=== PATIENT | male | born 1950 | race Caucasian/White ===

== ENCOUNTER 2022-07-15 10:34 | Emergency (ER) | payer OTHER ==
[~2022-07-15] VITALS: Ht 165.1 cm; Wt 76.2 kg
[2022-07-15 11:03] VITALS: BP_SYST 144
--- NOTE | 2022-07-15 11:05 | NUR ---
Patient triaged and placed in waiting room. VSS and patient appears in no acute distress at this time. Accompanied by , awaiting available bed, and MD notified of need for MSE.
--- NOTE | 2022-07-15 14:15 | NUR ---
Patient to ER bed CH1 to gown for evaluation. Side rails up.
--- NOTE | 2022-07-15 14:20 | NUR ---
ER DR. BALL EXAMINING PT
--- NOTE | 2022-07-15 17:05 | NUR ---
Pt bib from home CC left leg pain. Skin intact. aaox3, skin dry. Pt denies neuro deficit, denies sob.
--- NOTE | 2022-07-15 17:05 | NUR ---
ER at bedside examining patient.
[2022-07-15 17:32] VITALS: BP_SYST 139
--- NOTE | 2022-07-15 17:32 | NUR ---
Patient given written and verbal discharge instructions and verbalizes understanding. ER MD discussed with patient the results and treatment provided. Patient in stable condition. ID arm band removed. Rx of given. Patient educated on pain management and to follow up with PMD. Opportunity for questions provided and answered. Medication side effect fact sheet provided.
== END 2022-07-15 17:32 | disposition home or self-care (01) ==
LOC: SED 10:34
DX: I82.402 Acute embolism and thrombosis of unspecified deep veins of left lower extremity (principal); M79.662 Pain in left lower leg; E11.9 Type 2 diabetes mellitus without complications; I10 Essential (primary) hypertension; Z79.899 Other long term (current) drug therapy
CPT/HCPCS: 93970; 99284